=== PATIENT | female | born 1975 | race Caucasian/White ===

== ENCOUNTER 2019-05-28 12:55 | Emergency (ER) | payer OTHER ==
[2019-05-28 13:10] VITALS: BP 128/83
--- NOTE | 2019-05-28 13:25 | PHYS DOC ---
Past History Past Medical History: UTI Past Surgical History: Other Alcohol Use: Occasionally Drug Use: None Adult General Chief Complaint Chief Complaint: LOWER BACK PAIN OR INJURY HPI HPI 44-year-old female presents with pelvic pain. The patient has had pelvic pain for a few weeks. She was concern for STD so went to local clinic and was evaluated. All was negative except for bacterial vaginosis. She picked up her prescription and took her first dose this morning. She presents here because her pain seemed to increase overnight and is still there. The clinic was talking about doing further imaging, but could not do it until Thursday. The patient is scheduled to go out of town tomorrow. She wants to make sure that she can still make the trip. She denies fever, chills, nausea, vomiting, diarrhea. Review of Systems Review of Systems Constitutional: Denies fever or chills [] Eyes: Denies change in visual acuity, redness, or eye pain [] HENT: Denies nasal congestion or sore throat [] Respiratory: Denies cough or shortness of breath [] Cardiovascular: No additional information not addressed in HPI [] GI: Lower abdominal pain. Denies nausea, vomiting, bloody stools or diarrhea [] : Denies dysuria or hematuria [] Musculoskeletal: Denies back pain or joint pain [] Integument: Denies rash or skin lesions [] Neurologic: Denies headache, focal weakness or sensory changes [] Endocrine: Denies polyuria or polydipsia [] All other systems were reviewed and found to be within normal limits, except as documented in this note. Physical Exam Physical Exam Constitutional: Well developed, well nourished, no acute distress, non-toxic appearance. [] HENT: Normocephalic, atraumatic, bilateral external ears normal, oropharynx moist, no oral exudates, nose normal. [] Eyes: PERRLA, EOMI, conjunctiva normal, no discharge. [] Neck: Normal range of motion, no tenderness, supple, no stridor. [] Cardiovascular:Heart rate regular rhythm, no murmur [] Lungs & Thorax: Bilateral breath sounds clear to auscultation [] Abdomen: Bowel sounds normal, soft, mild lower abdominal tenderness, no masses, no pulsatile masses. [] Skin: Warm, dry, no erythema, no rash. [] Back: No tenderness, no CVA tenderness. [] Extremities: No tenderness, no cyanosis, no clubbing, ROM intact, no edema. [] Neurologic: Alert and oriented X 3, normal motor function, normal sensory function, no focal deficits noted. [] Psychologic: Affect normal, judgement normal, mood normal. [] Current Patient Data Vital Signs Vital Signs Date Time Temp Pulse Resp B/P (MAP) Pulse Ox O2 Delivery O2 Flow Rate FiO2 05/28/19 13:10 99.0 87 18 95 Room Air EKG EKG [] Radiology/Procedures Radiology/Procedures [] Impressions: EXAM: CT ABDOMEN/PELVIS WITH CONTRAST. HISTORY: Lower abdominal and pelvic pain. TECHNIQUE: Computed tomography of the abdomen and pelvis was performed after the intravenous administration of 75 mL Omnipaque 300. COMPARISON: None. FINDINGS: Lung windows through the visualized portions of the bases reveal mild atelectasis. A moderate to severe pectus excavatum deformity exerts significant mass effect on the right ventricle, partially visualized. Bilateral breast implants are noted. Bone windows reveal no suspicious lesions. There are regions of mildly increased attenuation within the left renal collecting system. This may represent clot but this is unclear. There is no hydronephrosis. There are no clear renal or urothelial lesions. The liver, gallbladder, pancreas, adrenal glands and spleen are unremarkable. There are no pathologically enlarged lymph nodes. Stool throughout the colon is consistent with constipation. The appendix is not inflamed. The vaginal wall appears thickened without clear focal lesions. An enhancing left ovarian follicle is likely physiologic. IMPRESSION: 1. Suggested vaginal wall thickening. Correlate with physical examination to assess for inflammation. 2. Increased attenuation within the left renal collecting system may reflect early excretion of contrast but this is unclear. Correlate with urinalysis to exclude hematuria. Renal sonography could further exclude radiolucent filling defects if there is persistent concern. 3. Correlate for constipation. 4. A moderate to severe pectus excavatum deformity exerts mass effect on the right ventricle. Correlation with other clinical data is recommended to assess physiologic significance. *One or more of the following individualized dose reduction techniques were utilized for this examination: 1. Automated exposure control. 2. Adjustment of the mA and/or kV according to patient size. 3. Use of iterative reconstruction technique. Electronically signed by: Karla Linder MD (05/28/2019 2:18 PM) [facility] DICTATED AND SIGNED BY: HYACINTH LINDER MD DATE: 05/28/19 1418 CC: TOM ALBARADO DO; CRISTELA MORA PA-C ~ Course & Med Decision Making Course & Med Decision Making Pertinent Labs and Imaging studies reviewed. (See chart for details) The patient's labs are unremarkable. Her CT scan shows stool burden and other incidental findings. See official report for more details. I do not see anything that would change the patient's management at this time. We will advise that she continue her Flagyl as well as taking a laxative to get her bowels moving. She is stable for discharge at this time. [] Dragon Disclaimer Dragon Disclaimer This electronic medical record was generated, in whole or in part, using a voice recognition dictation system. Departure Departure: Impression: Primary Impression: Constipation by delayed colonic transit Disposition: 01 HOME, SELF-CARE Condition: STABLE Referrals: CRISTELA MORA PA-C (PCP) Patient Instructions: Constipation, Adult, [id number] Additional Instructions: You should take a laxative to get her bowels moving. One option is to drink a bottle of magnesium citrate. After cleaning your system out, you should take MiraLAX daily to allow for any easy bowel movement each day. You can use 1-3 doses of this medication daily as needed. TOM ALBARADO DO May 28, 2019 13:25
[2019-05-28] MEDS ORDERED: IV NORMAL SALINE 1,000ML 1,000 ML IV ONE (13:30)
[2019-05-28 13:48] LABS: BASO # 0.1 x10^3/uL (0.0-0.2); BASO % 1 % (0-3); EOS # 0.2 x10^3/uL (0.0-0.7); EOS % 3 % (0-3); HEMATOCRIT 45.5 % (36.0-47.0); HEMOGLOBIN 15.1 g/dL (12.0-15.5); LYMPH # 1.6 x10^3/uL (1.0-4.8); LYMPH % 22 % (24-48); MEAN CORPUSCULAR HEMOGLOBIN 30 pg (25-35); MEAN CORPUSCULAR HGB CONC 33 g/dL (31-37); MEAN CORPUSCULAR VOLUME 91 fL (79-100); MONO # 0.6 x10^3/uL (0.0-1.1); MONO % 8 % (0-9); NEUT # 4.8 x10^3uL (1.8-7.7); NEUT % 66 % (31-73); PLATELET COUNT 316 x10^3/uL (140-400); RED BLOOD COUNT 5.02 x10^6/uL (3.50-5.40); RED CELL DISTRIBUTION WIDTH 14.3 % (11.5-14.5); WHITE BLOOD COUNT 7.4 x10^3/uL (4.0-11.0)
[2019-05-28 14:00] LABS: ALBUMIN 4.1 g/dL (3.4-5.0); ALBUMIN/GLOBULIN RATIO 1.1 (1.0-1.7); CALCIUM 9.6 mg/dL (8.5-10.1); CREATININE 0.8 mg/dL (0.6-1.0); GFR 77.6; TOTAL BILIRUBIN 0.4 mg/dL (0.2-1.0); TOTAL PROTEIN 7.7 g/dL (6.4-8.2)
[2019-05-28] MEDS ORDERED: IOHEXOL 300 MG/ML 75 ML VIAL. IV ONE (14:00)
--- NOTE | 2019-05-28 14:21 | RAD ---
EXAM: CT ABDOMEN/PELVIS WITH CONTRAST. HISTORY: Lower abdominal and pelvic pain. TECHNIQUE: Computed tomography of the abdomen and pelvis was performed after the intravenous administration of 75 mL Omnipaque 300. COMPARISON: None. FINDINGS: Lung windows through the visualized portions of the bases reveal mild atelectasis. A moderate to severe pectus excavatum deformity exerts significant mass effect on the right ventricle, partially visualized. Bilateral breast implants are noted. Bone windows reveal no suspicious lesions. There are regions of mildly increased attenuation within the left renal collecting system. This may represent clot but this is unclear. There is no hydronephrosis. There are no clear renal or urothelial lesions. The liver, gallbladder, pancreas, adrenal glands and spleen are unremarkable. There are no pathologically enlarged lymph nodes. Stool throughout the colon is consistent with constipation. The appendix is not inflamed. The vaginal wall appears thickened without clear focal lesions. An enhancing left ovarian follicle is likely physiologic. IMPRESSION: 1. Suggested vaginal wall thickening. Correlate with physical examination to assess for inflammation. 2. Increased attenuation within the left renal collecting system may reflect early excretion of contrast but this is unclear. Correlate with urinalysis to exclude hematuria. Renal sonography could further exclude radiolucent filling defects if there is persistent concern. 3. Correlate for constipation. 4. A moderate to severe pectus excavatum deformity exerts mass effect on the right ventricle. Correlation with other clinical data is recommended to assess physiologic significance. *One or more of the following individualized dose reduction techniques were utilized for this examination: 1. Automated exposure control. 2. Adjustment of the mA and/or kV according to patient size. 3. Use of iterative reconstruction technique. Electronically signed by: Karla Linder MD (05/28/2019 2:18 PM) [facility]
== END 2019-05-28 15:20 | disposition home or self-care (01) ==
LOC: ER 12:55
DX: K59.01 Slow transit constipation (principal); Z87.440 Personal history of urinary (tract) infections
CPT/HCPCS: 36415; 74177; 80053; 85025; 99285; Q9967; J7030